=== PATIENT | male | born 1950 | race Caucasian/White ===

== ENCOUNTER 2020-02-03 18:24 | Emergency (ER) | payer MEDICARE ==
[~2020-02-03] VITALS: Ht 188 cm; Wt 93.0 kg
[2020-02-03 18:36] VITALS: BP 156/96
[2020-02-03 19:07] LABS: BASOPHILS # (AUTO) 0.03 x10^3/uL (0-0.1); BASOPHILS % (AUTO) 1 % (0-1); EOSINOPHILS # (AUTO) 0.05 x10^3/uL (0-0.4); EOSINOPHILS % (AUTO) 1 % (1-7); LYMPHOCYTES # (AUTO) 1.03 x10^3/uL (1-3.4); LYMPHOCYTES % (AUTO) 18 % (22-44); MD NO; MEAN CORPUSCULAR HEMOGLOBIN 29.9 pg (27.5-34.5); MEAN CORPUSCULAR HGB CONC 33.7 g/dL (33.2-36.2); MEAN CORPUSCULAR VOLUME 88.5 fL (81-97); MEAN PLATELET VOLUME 8.6 fL (7.4-10.4); MONOCYTES % (AUTO) 7 % (2-9); NEUTROPHILS # (AUTO) 4.18 x10^3/uL (1.8-6.8); NEUTROPHILS % (AUTO) 74 % (42-75); PLATELET COUNT 243 x10^3/uL (130-400); RED CELL DISTRIBUTION WIDTH 13.4 % (9.4-14.8)
[2020-02-03 19:09] LABS: ALANINE AMINOTRANSFERASE 43 U/L (12-78); ALBUMIN 3.6 g/dL (3.4-5.0); ANION GAP 9 mmol/L (5-15); CHLORIDE 103 mmol/L (98-107); CREATININE 0.99 mg/dL (0.7-1.3)
[2020-02-03 19:11] LABS: ALKALINE PHOSPHATASE 93 U/L (45-117); BILIRUBIN,TOTAL 0.8 mg/dL (0.2-1.0); TOTAL PROTEIN 7.1 g/dL (6.4-8.2)
--- NOTE | 2020-02-03 19:27 | NUR ---
PT. TO ROOM FROM LOBBY AT THIS TIME.
--- NOTE | 2020-02-03 19:30 | NUR ---
PT AMBULATED BACK TO ROOM WITHOUT DIFFICULTY.
--- NOTE | 2020-02-03 19:33 | NUR ---
INSTRUCTED PT ON CLEAN CATCH URINE SAMPLE.
[2020-02-03 19:54] LABS: MICROSCOPIC NOT IND
[2020-02-03 20:04] LABS: CULTURE INDICATED? NO
--- NOTE | 2020-02-03 21:21 | NUR ---
PT UNSURE IF HE WANTS ANOTHER CT WITH CONTRAST SINCE THIS WAS DONE AT [facility] LAST MONTH FOR THE SAME COMPLAINT. ERP NOTIFIED, WILL SPEAK WITH PT.
--- NOTE | 2020-02-03 21:31 | NUR ---
ERP AT FOR RECHECK.
--- NOTE | 2020-02-03 21:45 | NUR ---
PT TO CT VIA WC.
--- NOTE | 2020-02-03 21:57 | NUR ---
REPORTED TO MAKAYLA PATTON.
== END 2020-02-03 22:52 | disposition home or self-care (01) ==
LOC: ED 20:51
DX: K59.00 Constipation, unspecified (principal); K76.89 Other specified diseases of liver
CPT/HCPCS: 36415; 74176; 80053; 81003; 85025; 99284

== ENCOUNTER → 2021-04-30 | Outpatient (CLI) | payer MEDICARE ==
[~2021-04-30] MED LIST: CHOL10003 PO; Equate PO; FINA5TAB4 PO; LACT1CAP35 PO; MAGN500C9 PO; NAPR-856 PO; POTA2TAB8 PO; TAMS-11 PO; TRAM50TA2 PO
[2021-04-30 13:40] LABS: BASOPHILS % (AUTO) 1 % (0-1); EOSINOPHILS % (AUTO) 1 % (1-7); LYMPHOCYTES % (AUTO) 15 % (22-44); MD NO; MEAN CORPUSCULAR HEMOGLOBIN 30.6 pg (27.5-34.5); MEAN CORPUSCULAR HGB CONC 34.5 g/dL (33.2-36.2); MEAN PLATELET VOLUME 9.6 fL (7.4-10.4); MONOCYTES % (AUTO) 6 % (2-9); NEUTROPHILS % (AUTO) 77 % (42-75); PLATELET COUNT 221 x10^3/uL (130-400); RED BLOOD COUNT 5.67 x10^6/uL (4.38-5.82); RED CELL DISTRIBUTION WIDTH 13.1 % (9.4-14.8)
[2021-04-30 13:53] LABS: ANION GAP 6 mmol/L (5-15); CALCIUM 9.6 mg/dL (8.5-10.1); CHLORIDE 112 mmol/L (98-107)
== END | disposition home or self-care (01) ==
LOC: STAR 12:02
PROVIDERS: ATTEND Urology
DX: Z01.818 Encounter for other preprocedural examination (principal); D49.59 Neoplasm of unspecified behavior of other genitourinary organ; R94.31 Abnormal electrocardiogram [ECG] [EKG]; Z20.822 Contact with and (suspected) exposure to COVID-19
CPT/HCPCS: 36415; 80048; 85025; 87086; 93005; U0003; U0005

== ENCOUNTER 2021-05-04 14:22 | Day surgery (SDC) | payer MEDICARE ==
[~2021-05-04] VITALS: Ht 185.4 cm; Wt 91.5 kg
[2021-05-04] MEDS ORDERED: PROPOFOL 10 MG/ML, 20ML ONE ×2 (14:28→15:46)
[2021-05-04] MEDS ORDERED: FENTANYL PF 100 MCG/2ML ONE ×2 (14:28→15:51)
[2021-05-04] MEDS ORDERED: CEFAZOLIN 1,000 MG ONE ×2 (14:29)
[2021-05-04] MEDS ORDERED: LACTATED RINGERS 1,000 ML IV SCH (15:00)
[2021-05-04] MEDS ORDERED: CHLORHEXIDINE 15 ML UDC PO ONE (15:00)
[2021-05-04 15:02] VITALS: BP 137/84
[2021-05-04] MEDS ORDERED: MULT-449 PO (15:08)
[2021-05-04] MEDS ORDERED: morphine SULFATE 10 MG/ML, 1ML IVPush PRN (15:30)
[2021-05-04] MEDS ORDERED: HYDROmorphone 1 MG/ML, 1ML INJ IVPush PRN (15:30)
[2021-05-04] MEDS ORDERED: FENTANYL PF 100 MCG/2ML IV PRN (15:30)
[2021-05-04] MEDS ORDERED: MEPERIDINE/PF 25MG/0.5ML IVPush PRN (15:30)
[2021-05-04] MEDS ORDERED: OXYcodone 5 MG/5 ML ORAL.SOL UDC PO PRN (15:30)
[2021-05-04] MEDS ORDERED: ONDANSETRON 2MG/ML, 2ML IVPush PRN (15:30)
[2021-05-04] MEDS ORDERED: ACETAMINOPHEN 325 MG TABLET PO PRN (15:30)
[2021-05-04] MEDS ORDERED: hydrALAzine 20 MG/ML, 1ML IV PRN (15:30)
[2021-05-04] MEDS ORDERED: LABETALOL 5MG/ML, 20ML IV PRN (15:30)
== END 2021-05-04 18:00 | disposition home or self-care (01) ==
LOC: OR 14:22
PROVIDERS: ATTEND Urology
DX: D49.59 Neoplasm of unspecified behavior of other genitourinary organ (principal); D30.4 Benign neoplasm of urethra; Z79.891 Long term (current) use of opiate analgesic; Z79.899 Other long term (current) drug therapy
CPT/HCPCS: 52234; 88305; J0690; J2704; J3010; J7120